=== PATIENT | female | born 2000 | race Caucasian/White ===

== ENCOUNTER 2021-02-02 06:22 | Emergency (ER) | payer SELFPAY ==
--- NOTE | 2021-02-02 06:45 | EDM.PDOC ---
ED HPI GENERAL MEDICAL PROBLEM - General Chief Complaint: General Stated Complaint: tooth pain Time Seen by Provider: 02/02/21 06:33 Source of Information: Reports: Patient, Significant Other History Limitations: Reports: No Limitations - History of Present Illness INITIAL COMMENTS - FREE TEXT/NARRATIVE: Patient presents with a painful left upper molar that is broken. It has been "chipped" for a long time but broke in half a couple days ago. She hasn't been able to afford to see a dentist for quite awhile but is planning to go directly from here to see a dentist in [place] that is evidently available on an emergent basis; aaron is driving her. The tooth is very painful and infected she thinks. - Related Data Allergies Allergy/AdvReac Type Severity Reaction Status Date / Time prochlorperazine Allergy Other Verified 02/02/21 06:37 [From Compazine] Home Meds: Home Meds . [No Known Home Meds] 02/02/21 [History] ED ROS GENERAL - Review of Systems Review Of Systems: See Below Constitutional: Denies: Fever, Chills, Malaise, Weakness HEENT: Reports: Ear Pain (left ear hurts related to the tooth pain she says). Denies: Throat Pain, Vision Change Respiratory: Denies: Shortness of Breath, Cough Cardiovascular: Reports: No Symptoms Endocrine: Reports: No Symptoms GI/Abdominal: Reports: Nausea, Vomiting (once in ER). Denies: Abdominal Pain : Denies: Dysuria Musculoskeletal: Reports: No Symptoms Skin: Reports: No Symptoms Neurological: Reports: No Symptoms Psychiatric: Reports: No Symptoms ED EXAM, GENERAL - Physical Exam Exam: See Below Exam Limited By: No Limitations General Appearance: Alert, WD/WN, No Apparent Distress Eye Exam: Bilateral Eye: EOMI, Normal Inspection, PERRL Ears: Normal External Exam, Hearing Grossly Normal Nose: Normal Inspection, No Blood Throat/Mouth: Normal Lips, Normal Oropharynx, Normal Voice, No Airway Compromise, Other (left upper posterior molar is mostly missing; the next one to it is the most painful and recently broken one she says. It appears to be cracked and mildly displaced with evidence of tooth putty on it. No definite infection confirmed but likely. Most teeth are intact but significant periodontitis.) Head: Atraumatic, Normocephalic Neck: Normal Inspection, Full Range of Motion Respiratory/Chest: No Respiratory Distress, Lungs Clear, Normal Breath Sounds Cardiovascular: Regular Rate, Rhythm, No Murmur GI/Abdominal: Soft, Non-Tender, No Organomegaly, No Distention Back Exam: Normal Inspection, Full Range of Motion. No: CVA Tenderness (L), CVA Tenderness (R) Extremities: Normal Inspection, Normal Range of Motion Neurological: Alert, Oriented, Normal Cognition, No Motor/Sensory Deficits Psychiatric: Normal Affect, Tearful Skin Exam: Warm, Dry, Intact, Normal Color, No Rash Course - Re-Assessments/Exams Free Text/Narrative Re-Assessment/Exam: 02/02/21 07:10 Discussed findings and treatment plan. I encouraged them to see the dentist today, if possible, as they are planning. Augmentin 875mg #20 1 po bid x 10 days given. Zofran, Augmentin, Hydrocodone and Ibuprofen given in ER. Patient discharged in stable condition. Departure - Departure Time of Disposition: 06:51 Disposition: Home, Self-Care 01 Condition: Good Clinical Impression: Tooth infection Broken tooth Qualifiers: Encounter type: initial encounter - Discharge Information Instructions: Tooth Injuries, [id number] Additional Instructions: Take the antibiotic as directed. Take Ibuprofen 600 mg three times a day until pain resolves. See a dentist [facility] as we discussed.
[2021-02-02] MEDS ORDERED: Amoxicillin/Clavulanate K 875-125 MG Tab PO ONE (06:47)
[2021-02-02] MEDS ORDERED: Acetaminophen/HYDROcodone 325-5 MG Tab PO ONE (06:48)
[2021-02-02] MEDS ORDERED: Ibuprofen 600 MG Tab PO ONE (06:48)
[2021-02-02] MEDS ORDERED: Ondansetron 4 MG Tab.DIS PO ONE (06:57)
== END 2021-02-02 07:08 | disposition home or self-care (01) ==
LOC: KA.ED 06:22
DX: K04.7 Periapical abscess without sinus (principal); K03.81 Cracked tooth; Z88.5 Allergy status to narcotic agent
CPT/HCPCS: 99282; 99283; A9270-GY